=== PATIENT | female | born 1980 | race Two or more races ===

== ENCOUNTER 2020-03-04 19:58 | Emergency (ER) | payer OTHER ==
[~2020-03-04] VITALS: Ht 165.1 cm; Wt 71.2 kg
[2020-03-04 22:33] LABS: Basophils # (auto) 0.1 10 ^3/uL (0-0.2); Basophils % (auto) 1.5 % (0.0-2.0); Eosinophils # (auto) 0.2 10 ^3/uL (0-0.8); Hematocrit 18.1 % (36.0-46.0); Lymphocytes # (auto) 1.4 10 ^3/uL (0.4-5.4); Lymphocytes % (auto) 18.6 % (10.0-50.0); Mean Corpuscular Hemoglobin 15.5 pg (28.0-32.0); Mean Corpuscular Hgb Conc. 27.5 g/dL (32.0-36.0); Mean Corpuscular Volume 56.5 fL (80.0-100.0); Monocytes # (auto) 0.5 10 ^3/uL (0-1.3); Monocytes % (auto) 6.6 % (0.0-12.0); Neutrophils # (auto) 5.4 10 ^3/uL (1.6-8.6); Neutrophils % (auto) 70.3 % (37.0-80.0); Nucleated Red Blood Cells % 0.5 %; Platelet Count (auto) 450 10^3/uL (140-450); White Blood Cell 7.7 10^3/uL (4.4-10.8)
[2020-03-04 22:48] LABS: Albumin 3.8 g/dL (3.4-5.0); Calcium 8.5 mg/dL (8.5-10.1)
[2020-03-04 22:53] LABS: INR 1.05 (0.9-1.15); Partial Thromboplastin Time 24.3 sec (23.0-31.2)
[2020-03-04 22:54] LABS: BUN/Creatinine Ratio 21.1; Bilirubin, Total 0.5 mg/dL (0.2-1.0); Total Protein 7.8 g/dL (6.4-8.2)
[2020-03-05] VITALS (9 sets, daily range): BP systolic 111–132; BP diastolic 67–82
[2020-03-05] MEDS ORDERED: PANTOPRAZOLE 40 MG TAB PO ONE (01:30)
[2020-03-05 14:58] LABS: Basophils # (auto) 0.1 10 ^3/uL (0-0.2); Eosinophils # (auto) 0.1 10 ^3/uL (0-0.8); Mean Corpuscular Hemoglobin 20.5 pg (28.0-32.0); Monocytes # (auto) 0.6 10 ^3/uL (0-1.3); Monocytes % (auto) 6.8 % (0.0-12.0)
[2020-03-05 14:59] LABS: Eosinophils % (auto) 1.5 % (0.0-7.0); Hematocrit 29.1 % (36.0-46.0); Hemoglobin 9.1 g/dL (12.2-16.2); Lymphocytes % (auto) 10.7 % (10.0-50.0); Mean Corpuscular Hgb Conc. 31.2 g/dL (32.0-36.0); Mean Corpuscular Volume 65.7 fL (80.0-100.0); Neutrophils # (auto) 7.2 10 ^3/uL (1.6-8.6); Nucleated Red Blood Cells % 0.3 %; Platelet Count (auto) 406 10^3/uL (140-450); Red Blood Cells 4.43 10^6/uL (4.0-5.20)
[2020-03-05 15:30] LABS: Ferritin 6.1 ng/mL (10-322)
[2020-03-05 15:35] LABS: Red Cell Distribution Width 31.2 % (11.8-14.3)
[2020-03-05 15:49] LABS: INR 1.08 (0.9-1.15)
[2020-03-05 16:42] LABS: Albumin 3.6 g/dL (3.4-5.0); Anion Gap 7 (5-15); Blood Urea Nitrogen 11 mg/dL (7-18); Calcium 8.4 mg/dL (8.5-10.1); Carbon Dioxide 23 mmol/L (21-32); Chloride 111 mmol/L (98-107); Glucose 86 mg/dL (74-106); Potassium 3.7 mmol/L (3.5-5.1); Sodium 141 mmol/L (136-145)
[2020-03-05 16:46] LABS: Alanine Aminotransferase 13 U/L (13-56); Alkaline Phosphatase 117 U/L (45-117); Aspartate Aminotransferase 23 U/L (15-37); BUN/Creatinine Ratio 15.1; Bilirubin, Total 2.3 mg/dL (0.2-1.0); GFR African American 113 mL/min; GFR Non-African American 93 mL/min; Total Protein 7.8 g/dL (6.4-8.2)
== END 2020-03-05 21:08 | disposition home or self-care (01) ==
LOC: ER 19:58
DX: D64.9 Anemia, unspecified (principal); R42 Dizziness and giddiness; D25.9 Leiomyoma of uterus, unspecified; Z20.828 Contact with and (suspected) exposure to other viral communicable diseases; Z98.51 Tubal ligation status
CPT/HCPCS: 36415; 36430; 76856; 80053; 82607; 82728; 83880; 84484; 84702; 85025; 85384; 85610; 85730; 86850; 86900; 86901; 86920; 87426; 99285; P9016; U0003